=== PATIENT | female | born 1990 | race Caucasian/White ===

== ENCOUNTER 2018-03-24 19:56 | Emergency (ER) | payer MEDICAID, OTHER ==
[2018-03-24 20:21] VITALS: BP 93/63; PULSE 82; TEMP 98.2; O2SAT 100
[2018-03-24] MEDS ORDERED: Acetaminophen 650mg/20.3ml solution UD ONE (20:37)
--- NOTE | 2018-03-24 20:49 | C.PDOC ---
History Of Present Illness 27 year old female who is presents to the ER with a complaint of nasal congestion, headache, ear fullness, and scratchy throat. Denies fever or chills. Time Seen by Provider: 03/24/18 20:24 Chief Complaint (Nursing): Headache History Per: Patient History/Exam Limitations: no limitations Onset/Duration Of Symptoms: Days Current Symptoms Are (Timing): Still Present Preceeding Symptoms: None Associated Symptoms: Other (Nasal congestion, ear fullness, scratchy throat.). denies: Photophobia, Blurred Vision, Nausea, Vomiting, Extremity Weakness Recent travel outside of the [place]: No Past Medical History Reviewed: Historical Data, Nursing Documentation, Vital Signs Vital Signs: Last Vital Signs Temp 98.2 F 03/24/18 20:16 Pulse 82 03/24/18 20:16 Resp 20 03/24/18 21:28 BP 93/63 L 03/24/18 20:16 Pulse Ox 100 03/24/18 20:49 - Medical History PMH: Anemia, Asthma Family History: States: Unknown Family Hx - Social History Hx Alcohol Use: Yes Hx Substance Use: No - Immunization History Hx Tetanus Toxoid Vaccination: No Hx Influenza Vaccination: No Hx Pneumococcal Vaccination: No Review Of Systems Constitutional: Negative for: Fever, Chills ENT: Positive for: Nose Congestion, Throat Pain, Other (Ear fullness) Respiratory: Negative for: Cough Gastrointestinal: Negative for: Nausea, Vomiting, Abdominal Pain Neurological: Positive for: Headache Physical Exam - Physical Exam Appears: Non-toxic, No Acute Distress Skin: Normal Color, Warm, Dry Head: Atraumatic, Normacephalic Eye(s): bilateral: Normal Inspection Ear(s): Bilateral: Normal Nose: Normal Oral Mucosa: Moist Throat: Normal, No Erythema, No Exudate Neck: Normal, Supple Chest: Symmetrical, No Tenderness Cardiovascular: Rhythm Regular Respiratory: Normal Breath Sounds, No Rales, No Rhonchi, No Wheezing Neurological/Psych: Oriented x3, Normal Speech ED Course And Treatment O2 Sat by Pulse Oximetry: 100 (Room air) Pulse Ox Interpretation: Normal Medical Decision Making Medical Decision Making: Tylenol and claritin administered. Patient reports improvement of her symptoms, she is resting comfortably in the ER in no distress, will discharge home with Rx and instructions to follow up with PMD. Disposition Counseled Patient/Family Regarding: Diagnosis, Need For Followup - Disposition Referrals: Erlin Villalobos MD [Staff Provider] - Disposition: HOME/ ROUTINE Disposition Time: 20:47 Condition: STABLE Additional Instructions: You can take Tylenol up to 975mg as needed for your headache Try saline nasal spray Can take daily antihistamine Prescriptions: Loratadine [Claritin] 10 mg PO DAILY #30 tab Sodium Chloride/Aloe Vera [[place] Saline Nasal Gel [place]] 22 ml NS BID #1 spray Instructions: Headache, Adult (DC) Forms: [employer] (H[place]ian), Work Excuse - POA Present On Arrival: None - Clinical Impression Clinical Impression: Headache, Nasal congestion - PA / SUBCONTR[employer] MANAGER / Resident Statement MD/DO has reviewed & agrees with the documentation as recorded. - Scribe Statement The provider has reviewed the documentation as recorded by the Scribximena Schwarz All medical record entries made by the Scribximena were at my direction and personally dictated by me. I have reviewed the chart and agree that the record accurately reflects my personal performance of the history, physical exam, medical decision making, and the department course for this patient. I have also personally directed, reviewed, and agree with the discharge instructions and disposition.
[2018-03-24 21:29] VITALS: RESP 20
== END 2018-03-24 21:28 | disposition home or self-care (01) ==
LOC: C.ER 19:56
DX: R09.81 Nasal congestion (principal); R51 Headache